=== PATIENT | male | born 1950 | race Caucasian/White ===

== ENCOUNTER → 2016-08-10 | Outpatient (CLI) | payer OTHER ==
[~2016-08-10] MED LIST: ASPI325T45 PO; ASPI81TA28 PO; FINA1TAB3 PO; LISI10TA PO; NTRGSL4 SL; ROSU5TAB PO
[2016-08-10 17:00] LABS: BASO % 0.2 %; BASO ABS # 0.01 K/uL (0-0.2); COMPLETE YES; EOS % 2.4 %; HEMATOCRIT 40.8 % (42-52); IG% 0.2 %; LYMPH % 28.9 %; LYMPH ABS # 1.55 K/uL (1.2-3.4); MEAN CELL VOLUME 91.1 fL (80-100); MEAN CORPUSCULAR HEMOGLOBIN 31.7 pg (25-34); MEAN CORPUSCULAR HGB CONC 34.8 g/dl (32-36); MEAN PLATELET VOLUME 9.5 fL (7.4-10.4); MONO % 10.6 %; NEUT % 57.7 %; PLATELET COUNT 193 K/uL (130-400); RED BLOOD COUNT 4.48 M/uL (4.7-6.1); WHITE BLOOD COUNT 5.37 K/uL (4.8-10.8)
[2016-08-10 17:11] LABS: ALT/SGPT 28 U/L (12-78); BLOOD UREA NITROGEN 18 mg/dl (7-18); BUN/CREATININE RATIO 16.6 (10-20); CALCIUM 9.2 mg/dl (8.5-10.1); CARBON DIOXIDE 32 mmol/L (21-32); CHLORIDE 103 mmol/L (98-107); GLUCOSE 98 mg/dl (70-99); POTASSIUM 3.8 mmol/L (3.5-5.1); SODIUM 142 mmol/L (136-145)
[2016-08-10 17:14] LABS: ALB/GLOB RATIO 1.4 (0.9-2); ALKALINE PHOSPHATASE 69 U/L (45-117); AST/SGOT 17 U/L (15-37)
== END | disposition home or self-care (01) ==
LOC: C.LABBC 15:15
PROVIDERS: ATTEND Family Medicine
DX: R10.32 Left lower quadrant pain (principal)

== ENCOUNTER → 2016-08-18 | Outpatient (CLI) | payer OTHER ==
[~2016-08-18] MED LIST changes: +OPTIRAY 320 IV PRN
--- NOTE | 2016-08-18 12:50 | DIAGNOSTIC IMAGING REPORT ---
ABDOMEN AND PELVIS CT WITH IV AND ORAL CONTRAST CT DOSE: 266.13 mGy.cm HISTORY: R10.32 Abdominal pain, left lower quadrant TECHNIQUE: Multiaxial CT images of the abdomen and pelvis were performed following the use of intravenous and oral contrast. COMPARISON STUDY: None. FINDINGS: Lung bases are considered generally clear. 7 mm groundglass density medial aspect right cardiophrenic angle spleen and pancreas enhance uniformly. Upper abdominal bowel pattern is nonobstructive. Kidneys are unremarkable and are negative for hydronephrosis. Components of wall thickening of the mid sigmoid colon are present. Diverticuli as well as a trace amount of pericolonic infiltrative change is present. No evidence for abscess collection or obstruction. Bladder is midline. Possible annular lesion mid sigmoid best seen transaxial 61. No significant abdominal pelvic or inguinal gabriele pathology. IMPRESSION: 1. Mild acute mid sigmoid diverticulitis. 2. Potential annular lesion lower sigmoid colon right lateral pelvis with endoscopic evaluation recommended. 3. No evidence for abscess collection or obstruction. Electronically signed by: Winston Bahena M.D. 08/18/2016 12:48 PM Dictated Date/Time: 08/18/2016 12:44 PM
== END | disposition home or self-care (01) ==
LOC: C.CTS 12:04
PROVIDERS: ATTEND Family Medicine
DX: R10.32 Left lower quadrant pain (principal)

== ENCOUNTER → 2017-06-08 | Outpatient (CLI) | payer OTHER ==
[2017-06-08 11:01] LABS: BASO % 0.2 %; BASO ABS # 0.01 K/uL (0-0.2); COMPLETE YES; HEMATOCRIT 45.4 % (42-52); HEMOGLOBIN 15.5 g/dL (14.0-18.0); IG# 0.01 K/uL (0.00-0.02); IG% 0.2 %; LYMPH ABS # 1.45 K/uL (1.2-3.4); MEAN CORPUSCULAR HEMOGLOBIN 32.4 pg (25-34); MEAN CORPUSCULAR HGB CONC 34.1 g/dl (32-36); MEAN PLATELET VOLUME 9.8 fL (7.4-10.4); MONO % 9.4 %; MONO ABS # 0.47 K/uL (0.11-0.59); NEUT % 59.2 %; NEUT ABS # 2.96 K/uL (1.4-6.5); PLATELET COUNT 183 K/uL (130-400); RED BLOOD COUNT 4.78 M/uL (4.7-6.1); RED CELL DISTRIBUTION WIDTH SD 45.1 fL (36.4-46.3)
[2017-06-08 11:32] LABS: GLUCOSE 86 mg/dl (70-99)
[2017-06-08 11:32] LABS: ALBUMIN 4.1 gm/dl (3.4-5.0); ALT/SGPT 31 U/L (12-78); AST/SGOT 18 U/L (15-37); BLOOD UREA NITROGEN 19 mg/dl (7-18); CALCIUM 9.1 mg/dl (8.5-10.1); CARBON DIOXIDE 30 mmol/L (21-32); CHLORIDE 104 mmol/L (98-107); CHOLESTEROL 190 mg/dl (0-200); EstGFR CKD-E AfrAm 89.2; SODIUM 138 mmol/L (136-145)
[2017-06-08 11:46] LABS: ALB/GLOB RATIO 1.3 (0.9-2); ALKALINE PHOSPHATASE 72 U/L (45-117); CHOLESTEROL/HDL RATIO 3.5; HDL CHOLESTEROL 55 mg/dl; LDL CHOLESTEROL CALCULATED 113 mg/dl; PROSTATE SPECIFIC ANTIGEN 0.433 ng/ml (0.000-4.000); THYROID STIMULATING HORMONE 0.796 uIu/ml (0.300-4.500); TOTAL PROTEIN 7.2 gm/dl (6.4-8.2); TRIGLYCERIDES 110 mg/dl (0-150); VERY LOW DENSITY LIPOPROT CALC 22 mg/dl
== END | disposition home or self-care (01) ==
LOC: C.LABBC 07:32
DX: I10 Essential (primary) hypertension (principal); K21.9 Gastro-esophageal reflux disease without esophagitis; N40.1 Benign prostatic hyperplasia with lower urinary tract symptoms; E04.2 Nontoxic multinodular goiter; E78.5 Hyperlipidemia, unspecified

== ENCOUNTER → 2017-06-14 | Outpatient (CLI) | payer OTHER ==
[~2017-06-14] MED LIST changes: -OPTIRAY 320 IV PRN
--- NOTE | 2017-06-14 12:32 | DIAGNOSTIC IMAGING REPORT ---
CHEST 2 VIEWS ROUTINE CLINICAL HISTORY: R07.9 Chest pain, unspecified typeR50.9 [id number] pain COMPARISON STUDY: 06/28/2014 FINDINGS: The bones soft tissues and hemidiaphragms are normal. The cardiomediastinal silhouette is normal. The lungs are clear. The pulmonary vasculature is normal. IMPRESSION: Negative chest. The above report was generated using voice recognition software. It may contain grammatical, syntax or spelling errors. Electronically signed by: Winston Bahena M.D. 06/14/2017 12:31 PM Dictated Date/Time: 06/14/2017 12:30 PM
== END | disposition home or self-care (01) ==
LOC: C.RADBC 12:15
PROVIDERS: ATTEND Physician Assistant Medical
DX: R50.9 Fever, unspecified (principal); R07.9 Chest pain, unspecified

== ENCOUNTER → 2017-08-09 | Outpatient (CLI) | payer OTHER ==
[2017-08-09 11:46] LABS: BLOOD UREA NITROGEN 19 mg/dl (7-18); CREATININE 0.94 mg/dl (0.60-1.40)
== END | disposition home or self-care (01) ==
LOC: C.LABBC 08:13
PROVIDERS: ATTEND Internal Medicine
DX: Z01.812 Encounter for preprocedural laboratory examination (principal)

== ENCOUNTER → 2017-08-11 | Outpatient (CLI) | payer OTHER ==
--- NOTE | 2017-08-11 15:46 | DIAGNOSTIC IMAGING REPORT ---
CAROTID DOPPLER NECK ART HISTORY: Mental status change R20.9 Facial [id number] COMPARISON: None. TECHNIQUE: Real-time, grayscale, and color Doppler sonography of the carotid arteries was performed. Imaging reviewed in the transverse and longitudinal planes. All measurements were calculated based on NASCET criteria. FINDINGS: Antegrade flow is seen in the bilateral vertebral arteries. The brachial pressures are hemodynamically similar. Moderate plaque bilaterally The peak systolic velocity within the right ICA is 80. The right systolic ratio is 0.9. The peak systolic velocity within the left ICA is 104. The left systolic ratio is 0.9. IMPRESSION: Moderate plaque formation bilaterally. No significant stenosis. The above report was generated using voice recognition software. It may contain grammatical, syntax or spelling errors. Electronically signed by: Winston Bahena M.D. 08/11/2017 3:45 PM Dictated Date/Time: 08/11/2017 3:41 PM
--- NOTE | 2017-08-11 16:41 | DIAGNOSTIC IMAGING REPORT ---
CERVICAL WITHOUT CONTRAST HISTORY: Pain. Neuropathy. R20.9 Facial [id number] TECHNIQUE: Multiplanar multisequence MRI of the cervical spine was performed without the use of contrast. COMPARISON STUDY: None. FINDINGS: Compromised exam due to moderate patient motion. Study is grossly diagnostic. C2-C3: Mild osteophytic narrowing left neuroforamina. C3-C4: Broad-based posterior disc bulge with mild osteophytic reaction. No significant contact with or deformity of the cervical cord. Moderate narrowing of the right neuroforamina. C4-C5: Broad-based extradural defect comprised of osteophytes and bulging disc components. Minimal impact anterior cervical cord. Moderate to rather significant narrowing of the neuroforamina bilaterally. C5-C6: Broad-based bulging disc. Severe osteophytic narrowing of the right and to a greater extent left neuroforamina. C6-C7: Minimal osteophytic narrowing left neuroforamina. C7-T1: No significant central canal or neural foraminal narrowing. IMPRESSION: 1. Moderate degenerative disc change at the entire cervical region. 2. Multilevel posterior extradural defects creating only minimal to mild impact upon the anterior cervical cord at C3-C6. 3. Multifactorial narrowing of several neural foramina bilaterally felt to be most prominent at C5-C6. The above report was generated using voice recognition software. It may contain grammatical, syntax or spelling errors. Electronically signed by: Winston Bahena M.D. 08/11/2017 4:40 PM Dictated Date/Time: 08/11/2017 4:32 PM
== END | disposition home or self-care (01) ==
LOC: C.MRIBC 15:01
PROVIDERS: ATTEND Physician Assistant Medical
DX: R20.9 Unspecified disturbances of skin sensation (principal); I65.23 Occlusion and stenosis of bilateral carotid arteries

== ENCOUNTER → 2017-08-22 | Outpatient (CLI) | payer OTHER ==
[~2017-08-22] MED LIST changes: +ASPECOTC PO; -ASPI325T45 PO
[2017-08-22 11:31] LABS: ALBUMIN 4.1 gm/dl (3.4-5.0); ALT/SGPT 32 U/L (12-78); BLOOD UREA NITROGEN 20 mg/dl (7-18); CALCIUM 8.8 mg/dl (8.5-10.1); CARBON DIOXIDE 30 mmol/L (21-32); CHOLESTEROL 180 mg/dl (0-200); CREATININE 0.98 mg/dl (0.60-1.40); GLUCOSE 91 mg/dl (70-99); POTASSIUM 4.4 mmol/L (3.5-5.1); SODIUM 140 mmol/L (136-145)
[2017-08-22 11:34] LABS: ALKALINE PHOSPHATASE 73 U/L (45-117); AST/SGOT 18 U/L (15-37); LDL CHOLESTEROL CALCULATED 106 mg/dl; TOTAL PROTEIN 6.9 gm/dl (6.4-8.2)
== END | disposition home or self-care (01) ==
LOC: C.LABBC 08:54
PROVIDERS: ATTEND Internal Medicine
DX: E78.5 Hyperlipidemia, unspecified (principal)

== ENCOUNTER → 2017-08-23 | Outpatient (CLI) | payer OTHER ==
[~2017-08-23] MED LIST changes: +GADAVIST IV PRN
--- NOTE | 2017-08-23 08:11 | DIAGNOSTIC IMAGING REPORT ---
BRAIN COMBO FOR TRIGEMINAL CLINICAL HISTORY: Left-sided facial pain. Facial paralysis. COMPARISON STUDY: MRI of the brain March 17, 2009. TECHNIQUE: Utilizing 1.5 Shahnaz magnet and dedicated coil, multiplanar, multiecho imaging of the brain was performed pre and postcontrast administration with thin cut imaging through the skull base as per the trigeminal protocol. Injection of 6.5 cc of Gadavist IV was uneventful. FINDINGS: No foci of restricted diffusion. No acute intracranial hemorrhage, midline shift or mass effect is present. Ventricular system is normal. Basilar cisterns are patent. There are no extra-axial collections. Flow-voids for the major intracranial vessels are present. There is no intracranial mass or pathologic enhancement. No abnormalities are identified along the course of the trigeminal nerves. Meckel's caves are within normal limits. No facial lesion is identified. Calvarial signal is maintained. A few white matter T2 hyperintense foci are similar to MRI of March 17, 2009. Orbits are unremarkable. Mastoid air cells are clear. There is no fluid within the mastoid air cells. IMPRESSION: 1. No acute intracranial findings. 2. No intracranial mass or pathologic enhancement. No abnormality along the course of the trigeminal or facial nerves. 3. A few white matter T2 hyperintense foci which are similar to prior exam and suggest minimal small vessel disease. Electronically signed by: Jeremie Hampton M.D. 08/23/2017 8:10 AM Dictated Date/Time: 08/23/2017 7:56 AM
== END | disposition home or self-care (01) ==
LOC: C.MRIBC 06:46
PROVIDERS: ATTEND Physician Assistant Medical
DX: R20.9 Unspecified disturbances of skin sensation (principal)